=== PATIENT | female | born 1985 | race Caucasian/White ===

== ENCOUNTER 2016-08-13 10:45 | Day surgery (SDC) | payer SELFPAY ==
[~2016-08-13] VITALS: Ht 165.1 cm; Wt 62.6 kg
[~2016-08-13 10:45] MED LIST: MAGNESIUM PO; MSM PO; MULT VITAMI1 PO; NIASPAN500 MG PO
[2016-08-13] MEDS ORDERED: PERCOCET 5/325M1 TAB PO (17:32)
[2016-08-13 18:34] VITALS: BP 114/62
== END 2016-08-13 18:35 | disposition home or self-care (01) | DRG 514 ==
LOC: ORM 10:45
PROVIDERS: ATTEND Orthopaedic Surgery
PROC: 0RBP0ZZ Excision of Left Wrist Joint, Open Approach (ICD-10-PCS; principal; 2016-08-13)
DX: M67.432 Ganglion, left wrist (principal); J45.909 Unspecified asthma, uncomplicated